=== PATIENT | female | born 1990 ===

== ENCOUNTER 2016-11-19 16:54 | Emergency (ER) | payer BC ==
[2016-11-19 17:01] VITALS: BP 137/73; PULSE 87; RESP 18; TEMP 98.3; O2SAT 98
--- NOTE | 2016-11-19 18:02 | ED PDOC ---
HPI: Female Pain Time Seen by Provider: 11/19/16 17:06 Chief Complaint (Nursing): Female Genitourinary Chief Complaint (Provider): UTI History Per: Patient Additional Complaint(s): Pt is a 26 yo female, , no PMH, presents to ED with complaints of clear discharge since earlier today. Pt was advised to go to the ED by her SCIENCE PROFESSOR. No abdominal pain. Pt denies any vaginal itching or burning. Pt wanted to make sure her water did not break. Dr. Tejeda (SCIENCE PROFESSOR) Past Medical History Reviewed: Nursing Documentation, Vital Signs Vital Signs: Last Vital Signs Temp 98.3 F 11/19/16 16:57 Pulse 87 11/19/16 16:57 Resp 18 11/19/16 16:57 BP 137/73 11/19/16 16:57 Pulse Ox 98 11/19/16 16:57 - Medical History PMH: No Chronic Diseases - Surgical History Surgical History: No Surg Hx - Family History Family History: States: No Known Family Hx - Living Arrangements Living Arrangements: With Family - Social History Current smoker - smoking cessation education provided: No Alcohol: None Drugs: Denies - Allergies Allergies/Adverse Reactions: Allergies Allergy/AdvReac Type Severity Reaction Status Date / Time No Known Allergies Allergy Verified 11/19/16 17:01 Review of Systems ROS Statement: Except As Marked, All Systems Reviewed And Found Negative Genitourinary Female: Positive for: Vaginal Discharge Physical Exam - Reviewed Nursing Documentation Reviewed: Yes Vital Signs Reviewed: Yes - Physical Exam Appears: Positive for: Well, Non-toxic, No Acute Distress Head Exam: Positive for: ATRAUMATIC, NORMAL INSPECTION, NORMOCEPHALIC Skin: Positive for: Normal Color, Warm, DRY Eye Exam: Positive for: EOMI, Normal appearance, PERRL ENT: Positive for: Normal ENT Inspection Neck: Positive for: Normal, Painless ROM Cardiovascular/Chest: Positive for: Regular Rate, Rhythm Respiratory: Positive for: CNT, Normal Breath Sounds Gastrointestinal/Abdominal: Positive for: Normal Exam, Bowel Sounds, Soft Back: Positive for: Normal Inspection Extremity: Positive for: Normal ROM Neurologic/Psych: Positive for: Alert, Oriented - ECG O2 Sat by Pulse Oximetry: 98 Medical Decision Making Medical Decision Making: Urine WNL US: 7 w 3 day SLIUP, (+) Heart Rate Pt educated on results and demonstrated full understanding. Disposition - Clinical Impression Clinical Impression: Vaginal discharge during - Patient ED Disposition Is Patient to be Admitted: No - Disposition Disposition: Routine/Home Disposition Time: 20:42 Condition: STABLE Instructions: (ED)
[2016-11-19 19:07] LABS: RBC URINE 1 /hpf (0-3); URINE BACTERIA RARE (<OCC); URINE BILIRUBIN NEGATIVE (NEGATIVE); URINE BLOOD NEGATIVE (NEGATIVE); URINE COLOR YELLOW (YELLOW); URINE GLUCOSE (UA) NEG (Normal); URINE KETONE TRACE mg/dL (NEGATIVE); URINE LEUKOCYTE ESTERASE NEG Leu/uL (Negative); URINE PROTEIN NEGATIVE (NEGATIVE); URINE UROBILINOGEN 0.2-1.0 mg/dL (0.2-1.0); WBC URINE 1 /hpf (0-5)
--- NOTE | 2016-11-19 20:26 | US ---
EXAM: US Uterus, Limited CLINICAL HISTORY: 26 years old, female; Signs and symptoms; Lmp or gestational age (in weeks): 07/31/16; Antepartum complications; Other: As per pt. Passing fluid; ; Additional info: Pt passing fluid TECHNIQUE: Real-time ultrasound of the maternal uterus (limited) with image documentation. EXAM DATE/TIME: 11/19/2016 6:02 PM COMPARISON: No relevant prior studies available. FINDINGS: Single fetus identified, breech position. Calculated sonographic gestational age is 15 weeks, 3 days. heart motion visualized, at 155 beats/min. Limited assessment of the anatomy on this exam. The stomach is seen. No obvious anomalies are detected. Anterior location of the placenta. No evidence of placental abruption. No evidence of placenta previa. TOVA was not measured. Amniotic fluid volume appears subjectively to be grossly normal in amount. Cervical length is 6.7 cm (normal greater than 3 cm), measured transabdominally. Ovaries could not be visualized. IMPRESSION: 15 week, 3 day intrauterine with heart motion. No acute abnormality identified on this limited exam. See above for remaining findings.
== END 2016-11-19 21:04 | disposition home or self-care (01) ==
LOC: H.ER 16:54
DX: O23.40 Unspecified infection of urinary tract in pregnancy, unspecified trimester (principal); Z3A.15 15 weeks gestation of pregnancy

== ENCOUNTER 2017-04-16 08:48 | Inpatient (IN) | payer BC ==
[2017-04-16 09:32] VITALS: BMI 40.2
[2017-04-16] MEDS ORDERED: Oxytocin 30 units/LR 500ML 30 U/500 ML BAG IV SCH (10:00)
[2017-04-16] MEDS: Lactated Ringer's 1,000 ML IV SCH (10:30)
[2017-04-16 10:53] LABS: BASO # 0.1 K/uL (0.0-0.2); BASO % 0.7 % (0.0-2.0); EOS # 0.1 K/uL (0.0-0.7); EOS % 0.9 % (0.0-4.0); HEMATOCRIT 39.8 % (34.0-47.0); LYMPH # 2.3 K/uL (1.0-4.3); LYMPH % 23.5 % (20.0-40.0); MEAN CELL VOLUME 73.9 fl (81.0-99.0); MEAN CORPUSCULAR HEMOGLOBIN 24.9 pg (27.0-31.0); MEAN CORPUSCULAR HGB CONC 33.6 g/dL (33.0-37.0); MEAN PLATELET VOLUME 10.6 fl (7.2-11.7); MONO # 0.7 K/uL (0.0-0.8); NEUT # 6.7 K/uL (1.8-7.0); NEUT % 67.9 % (50.0-75.0); NRBC % 0.1 % (0.0-0.0); WHITE BLOOD COUNT 9.9 K/uL (4.8-10.8)
--- NOTE | 2017-04-16 12:08 | OBHP ---
Datetime: 04/16/2017 09:45 IP Adm Impression: Term, intrauterine ; No Active Labor; Ruptured Membranes IP Admit Plan: Admit to unit Pelvic Type - PN: Adequate Extremities - PN: Normal Abdomen - PN: Normal Back - PN: Normal Breast - PN: Not Done Lungs - PN: Normal Heart - PN: Normal Thyroid - PN: Not Done Neurologic - PN: Normal HEENT - PN: Normal General - PN: Normal FHR - Baseline A Provider: 130 EGA AdmitDate IP: 37.0 Vital Signs Provider: Reviewed; Within Normal Limits IP Chief Complaint: Uterine contractions; Suspected ruptured membranes NICHD Variability Prov Fetus A: Moderate 6-25bpm NICHD Accel Fetus A IP Provider: 15X15 FHR Category Provider Fetus A: Category I NICHD Decel Fetus A IP Provider: None Dilatation, Provider: 0 Effacement, Provider: 0 Genitourinary Exam: Normal DTRs - PN: Not Done Datetime: 04/16/2017 09:30 Admit Comment, IP Provider: CC: ROM HPI: 26 yo at 37.0 wks GA via LMP; (First US: 10/27/2016) + FM, ROM -: CTX, VG Last US: 04/06/2017 last Visit: 04/14/2017 At 08:00 she shared a gush of clear/light pink fluid flowing from her vagina down her leg. Past OB: n/a Past gyne: denies STIs; pap 11/2016 neg pmhx: none past surg hx: none social: Negative: smoking/alcohol/drugs; last sexual encounter: months Meds: PNV allergies: NKDA VITALS: 132/72 83 PE: General: pleasant, in no acute distress HEENT: normocephalic, PERRLA; AAOx3 Heart: no murmurs, regular rate and rhythm, S1, S2 normal. Lungs: clear to auscultation bilaterally, no wheezing Abdomen: nontender, gravid CVA: negative Lower extremities: negative for pitting edema speculum: pooling of fluid in vaginal canal Bedside U/S: fetus in vertex Monitor: moderate variability; accel 15x15; no decel; FHR: 130 Assessment: 26 yo IUP at 37.0 wks GA via LMP ROM GBS: unknown Plan: Admit to Labor and Delivery, CBC/Type and Screen/RPR/HIV, Intravenous access, Monitori ng, Monitor Labor progress, Discussion about her condition including labor, augmentation with Pitocin , delivery, pain management, and care; case d/w Dr. Thomas SAWYER, PGY1 obh addendum: pt seen _ exmined by me. agree w/ above assessment and plan. Amniotic Fluid Color, Provider: Clear Membranes, Provider: Ruptured Comments, ACOG Physical Exam: bedside us vtx Pool Provider: Positive Nitrazine Provider: Positive Station, Provider: -3
[2017-04-16 12:41] LABS: ALB/GLOB RATIO 1.1 (1.0-2.1); ALKALINE PHOSPHATASE 217 U/L (38-126); ALT/SGPT 29 U/L (9-52); AST/SGOT 16 U/L (14-36); BILIRUBIN,TOTAL 0.5 mg/dl (0.2-1.3); BLOOD UREA NITROGEN 7 mg/dl (7-17); CALCIUM 9.3 mg/dL (8.4-10.2); CARBON DIOXIDE 21 mmol/L (22-30); CHLORIDE 108 mmol/L (98-107); GFR AFRICAN-AMERICAN > 60; GLUCOSE,RANDOM 87 mg/dL (65-105); POTASSIUM 3.9 MMOL/L (3.6-5.0); SODIUM 144 mmol/l (132-148); TOTAL PROTEIN 6.3 G/DL (6.3-8.2); URIC ACID 5.7 mg/Dl (2.2-7.5)
--- NOTE | 2017-04-16 15:29 | OBADHP ---
Datetime: 04/16/2017 09:45 Admit Comment, IP Provider: CC: ROM HPI: 26 yo at 37.0 wks GA via LMP; (First US: 10/27/2016) + FM, ROM -: CTX, VG Last US: 04/06/2017 last Visit: 04/14/2017 At 08:00 she shared a gush of clear/light pink fluid flowing from her vagina down her leg. Past OB: n/a Past gyne: denies STIs; pap 11/2016 neg pmhx: none past surg hx: none social: Negative: smoking/alcohol/drugs; last sexual encounter: months Meds: PNV allergies: NKDA VITALS: 132/72 83 PE: General: pleasant, in no acute distress HEENT: normocephalic, PERRLA; AAOx3 Heart: no murmurs, regular rate and rhythm, S1, S2 normal. Lungs: clear to auscultation bilaterally, no wheezing Abdomen: nontender, gravid CVA: negative Lower extremities: negative for pitting edema speculum: pooling of fluid in vaginal canal Bedside U/S: fetus in vertex GBS: unknown; ABO-Rh: A+; Ab: neg ; HIV: neg ; RPR: neg ; GC/C: neg ; Rubella: im ; HbsAg: neg; PP D: quant gold neg; TDap: ?? Monitor: moderate variability; accel 15x15; no decel; FHR: 130 Assessment: 26 yo IUP at 37.0 wks GA via LMP ROM GBS: unknown Plan: Admit to Labor and Delivery, CBC/Type and Screen/RPR/HIV, Intravenous access, Monitori ng, Monitor Labor progress, Discussion about her condition including labor, augmentation with Pitocin , delivery, pain management, and care; ase d/w Dr. Thomas SAWYER, PGY1 OBH Addendum: Patient seen and examined by me. Agree with above assessment and plan following the addition. She denies patient denies headache blurred vision blurred vision or spots in her vision right upper quadr ant pain nausea vomiting. O:. BP 1 3120s to 130s over 60s to 70s. Impression LFTs within normal limits, platelets normal Impression: Spontaneous rupture of membranes plan induction of labor with Cytotec order for Pitocin discontinue. Pelvic Type - PN: Adequate Extremities - PN: Normal Abdomen - PN: Normal Back - PN: Normal Breast - PN: Not Done Lungs - PN: Normal Heart - PN: Normal Thyroid - PN: Not Done Neurologic - PN: Normal HEENT - PN: Normal General - PN: Normal Vital Signs Provider: Reviewed; Within Normal Limits IP Chief Complaint: Uterine contractions; Suspected ruptured membranes NICHD Variability Prov Fetus A: Moderate 6-25bpm NICHD Accel Fetus A IP Provider: 15X15 FHR Category Provider Fetus A: Category I NICHD Decel Fetus A IP Provider: None Dilatation, Provider: 0 Effacement, Provider: 0 Genitourinary Exam: Normal DTRs - PN: Not Done EGA AdmitDate IP: 37.0 IP Adm Impression: Term, intrauterine ; No Active Labor; Ruptured Membranes IP Admit Plan: Admit to unit Datetime: 04/16/2017 09:30 FHR - Baseline A Provider: 120 Amniotic Fluid Color, Provider: Clear Membranes, Provider: Ruptured Comments, ACOG Physical Exam: bedside us vtx Pool Provider: Positive Nitrazine Provider: Positive Station, Provider: -3
[2017-04-17] MEDS: Lactated Ringer's 1,000 ML IV SCH ×4 (01:06→18:24)
[2017-04-17] MEDS: Nalbuphine 20 mg/ml Inj (1 ml) IVP PRN ×2 (01:11→04:45)
[2017-04-17] MEDS ORDERED: Nalbuphine 20 mg/ml Inj (1 ml) ONE (04:42)
[2017-04-17] MEDS ORDERED: Lactated Ringer's 1,000 ML IV SCH (06:10)
[2017-04-17] MEDS ORDERED: Bupivacaine HCl 0.25% PF (10 ml) Inj ONE (06:28)
[2017-04-17] MEDS ORDERED: Fentanyl/Bupivacaine HCl 250 ML EPI ONE (06:28)
[2017-04-17] MEDS ORDERED: Lidocaine 2% Inj (20ml) ONE (10:25)
[2017-04-17] MEDS ORDERED: Influenza Vaccine 18yr & older 0.5 ML/45 MCG SYR IM ONE ×2 (12:00→20:35)
[2017-04-17] MEDS ORDERED: Oxycodone/Acetaminophen 5/325 mg Tab PO PRN ×2 (19:46→20:33)
--- NOTE | 2017-04-17 20:12 | OBDS ---
MATERNAL INFORMATION Provider Comments: Pt pushed to deliver a viable female infant in direct OP position through clear f luid at 19:27. Apgars 9 and 9. Weight 2460gms, 5#6.8. Mouth and nares bulb-suctioned. Infant plac ed on mother's abdomen. Cord clamped and cut. Cord blood collected. Placenta delivered spontaneous ly intact w/ a 3vc at 19:33. Second degree vaginal tear repaired w/ running stitch of 3-0v.. 1st de gree tear repaired w/ figure-of- eight stitch of 3-0v. Rectum intact. Pt and baby tolerated procedu re well. EBL 100 mL LABOR SUMMARY EDC: 05/07/2017 00:00 No. Babies in Womb: 1 LABOR INFORMATION Cervical Ripening Agents: Cytotec @ (Annotations: 50mcg given po per MD's order. ) Group B Beta Strep: Done, Result Unknown MEMBRANES Membranes Rupture Method: Spontaneous Rupture of Membranes: 04/16/2017 08:00 Amniotic Fluid Color: Clear Amniotic Fluid Amount: Small Amniotic Fluid Odor: Normal PRESENTATION/POSITION BABY A Presentation: Cephalic
[2017-04-18 07:00] LABS: HEMATOCRIT 34.5 % (34.0-47.0); MEAN CELL VOLUME 74.7 fl (81.0-99.0); MEAN CORPUSCULAR HEMOGLOBIN 24.6 pg (27.0-31.0); RED CELL DISTRIBUTION WIDTH 18.4 % (11.5-14.5); WHITE BLOOD COUNT 29.8 K/uL (4.8-10.8)
[2017-04-18] MEDS ORDERED: Influenza Vaccine 18yr & older 0.5 ML/45 MCG SYR IM ONE (10:00)
--- NOTE | 2017-04-18 11:15 | OBPPN ---
Datetime: 04/18/2017 06:36 PP Pain Prov: Within normal limits PP Nausea Prov: Denies PP Flatus Prov: Yes PP BM Prov: No PP Breasts Prov: Not Done PP Heart Prov: Normal PP Lungs Prov: Normal PP Abdomen/Uterus Prov: Normal PP Lochia Prov: Normal PP Vulva/Perineum Prov: Not Done PP CVA Tenderness Prov: Normal PP Extremities Prov: Normal PP C/S Incision Prov: Not Applicable PP Progress Prov: Normal PP Impression Prov: Normal progression PP Plan Prov: Continue present management PP Progress Note Prov: S: 26 yo s/p NVD on 04/17/17 at 19:27. Pt. is seen and examined at [facility] this AM. No overnight events. Pt reports occasional abdominal pain, but well controlled with pain meds. Pt is ambulating without any difficulties. Attempting to breast feed baby. Tolerating PO diet. Lochia is similar to menses in volume. Voiding freely, No Bowel movement, but passing gas per rectum. Denies fever/chills, diarrhea, nausea/vomiting, chest pain, dyspnea, and dizziness. O: VS: stable GEN: NAD Cardio: S1S2, no M/G/R Resp: clear breath sounds b/l Abdomen: BS+, NT, Uterus is firm and at the level of the umbilicus. EXT: No edema, calves nontender NEURO/PSYCHI: AAOx3, no grossly focal deficit, preserved affect and mood. Assessment/Plan: 26 yo s/p NVD on 04/17/17 at 19:27. Pt remains afebrile, tolerating pain wi th medication, tolerating PO intake, doing well on PPD1. OOB with caution SCDs for DVT prophylaxis, pt ambulating Ibuprofen 600mg for pain. Colace 100mg PO BID/Senokot 17.2 mg qHS for constipation Encourage and ambulating F/u CBC post-delivery: pending Anticipated d/c to home tomorrow, 04/19/17. --- Salty Bhardwaj, PGY-1 OB H addendum: Patient seen and examined by me agree with above assessment and plan. IP PP Procedures: None Vital Signs Provider PP: Reviewed; Within Normal Limits
[2017-04-18 18:49] LABS: RBC URINE 2 /hpf (0-3); URINE BACTERIA OCC (<OCC); URINE BILIRUBIN NEGATIVE (NEGATIVE); URINE BLOOD NEGATIVE (NEGATIVE); URINE COLOR STRAW (YELLOW); URINE GLUCOSE (UA) NEG (Normal); URINE KETONE NEGATIVE (NEGATIVE); URINE LEUKOCYTE ESTERASE NEG Leu/uL (Negative); URINE PROTEIN NEGATIVE (NEGATIVE); URINE UROBILINOGEN 0.2-1.0 mg/dL (0.2-1.0); WBC URINE 3 /hpf (0-5)
--- NOTE | 2017-04-19 09:25 | OBDCSUM ---
Datetime: 04/19/2017 08:27 Discharged to, Provider: Home Follow up at, Provider: Casey Chang Instr Activity: Normal activity Disch Instr Diet: Regular Discharge Instructions, Provider: Routine instructions given Discharge Diagnosis, Provider: Term Delivered Discharge Time: 04/19/2017 10:00 Follow up in weeks, Provider: 4-6 weeks for visit Disch Referrals: None Contraception discussed, Prov: Yes Disch Activity Restrictions: No sexual activity; Nothing in vagina - [place], tampons, douche Discharge Comment, Provider: Discharge Summary DOA: 04/16/2017 EGA: 37.0 Diagnosis: NVD Term PRisk factors: none summary of : 26 yo F L_D summary DOL: 04/17/2017 at 19:27 NVD NB: F : 9/9 Weight: 2640g PP summary No serious complications during PP/Post-Op. Lochia= menses, mild pain, controlled with medications Rubella immune Blood type: A+ CBC pp: 11.4/34.5 Discharge Date: 04/19/2017 Time 10:00 AM Discharge Instructions: -encourage -percocet/Ibuprofen for pain PRN -Senokot 17.2 mg qHS for constipation -Ambulate as tolerated -f/u NB visit and PP visit --- Salty Bhardwaj, PGY1 [facility] Contraception after Delivery: Foam/Condoms
--- NOTE | 2017-04-19 09:25 | OBPPN ---
Datetime: 04/19/2017 08:23 PP Pain Prov: Within normal limits PP Nausea Prov: Denies PP Flatus Prov: Yes PP BM Prov: Yes PP Breasts Prov: Not Done PP Heart Prov: Normal PP Lungs Prov: Normal PP Abdomen/Uterus Prov: Normal PP Lochia Prov: Normal PP Vulva/Perineum Prov: Not Done PP CVA Tenderness Prov: Normal PP Extremities Prov: Normal PP C/S Incision Prov: Not Applicable PP Progress Prov: Normal PP Impression Prov: Normal progression PP Plan Prov: Discharge PP Progress Note Prov: S: 26 yo s/p NVD on 04/17/17 at 19:27. Pt. is seen and examined at [facility] this AM. No overnight events. Pt reports occasional abdominal pain, but well controlled with pain meds. Pt is ambulating without any difficulties. Attempting to breast feed/pump for baby. Tolerating PO diet. Lochia is similar to menses in volume. Voiding freely, Bowel movement and passing gas per re ctum. Denies fever/chills, diarrhea, nausea/vomiting, chest pain, dyspnea, and dizziness. O: VS: stable GEN: NAD Cardio: S1S2, no M/G/R Resp: clear breath sounds b/l Abdomen: BS+, NT, Uterus is firm and at the level of the umbilicus. EXT: No edema, calves nontender NEURO/PSYCHI: AAOx3, no grossly focal deficit, preserved affect and mood. Assessment/Plan: 26 yo s/p NVD on 04/17/17 at 19:27. Pt remains afebrile, tolerating pain wi th medication, tolerating PO intake, doing well on PPD2. OOB with caution pt ambulating Ibuprofen 600mg for pain. Senokot 17.2 mg qHS for constipation Encourage and ambulating F/u CBC post-delivery: 11.4/34.5 Anticipated d/c to home today, 04/19/17. --- Salty Bhardwaj, PGY-1 OB hospiutalist oncall. I saw and examined this patinet wi PGY1. Agree with note JORDAN VENCES PP Procedures: None Vital Signs Provider PP: Reviewed; Within Normal Limits
--- NOTE | 2017-04-20 09:17 | OBPPN ---
Datetime: 04/20/2017 09:10 PP Pain Prov: Within normal limits PP Nausea Prov: Denies PP Flatus Prov: Yes PP BM Prov: Yes PP Breasts Prov: Not Done PP Heart Prov: Normal PP Lungs Prov: Normal PP Abdomen/Uterus Prov: Normal PP Lochia Prov: Normal PP Vulva/Perineum Prov: Not Done PP CVA Tenderness Prov: Normal PP Extremities Prov: Normal PP C/S Incision Prov: Not Applicable PP Progress Prov: Normal PP Comments Phys Exam Prov: Pt is also attempting to pump breast milk. Rubio is in place pending urology consult. PP Impression Prov: Normal progression PP Plan Prov: Continue present management PP Progress Note Prov: S: 26 yo s/p NVD on 04/17/17 at 19:27. Pt. is seen and examined at [facility] this AM. No overnight events. Pt denies pain today. Pt is ambulating without any difficulties. Att empting to breast feed/pump for baby. Tolerating PO diet. Lochia is similar to menses in volume. Void in ml post void volume yesterday AM. Urology consulted. Rubio reinserted. Bowel movement and pa ssing gas per rectum. Denies fever/chills, diarrhea, nausea/vomiting, chest pain, dyspnea, and dizzin ess. O: VS: stable GEN: NAD Cardio: S1S2, no M/G/R Resp: clear breath sounds b/l Abdomen: BS+, NT, Uterus is firm and at the level of the umbilicus. EXT: No edema, calves nontender NEURO/PSYCHI: AAOx3, no grossly focal deficit, preserved affect and mood. Assessment/Plan: 26 yo s/p NVD on 04/17/17 at 19:27. Pt remains afebrile, tolerating pain wi th medication, tolerating PO intake, doing well on PPD3. OOB with caution pt ambulating Ibuprofen 600mg for pain. Senokot 17.2 mg qHS for constipation Encourage and ambulating F/u CBC post-delivery: 11.4/34.5 Anticipated d/c to home after urology consult. --- Salty Bhardwaj, PGY-1 IP PP Procedures: None Vital Signs Provider PP: Reviewed; Within Normal Limits Datetime: 04/19/2017 12:31 PP Impression Other Prov: urinary retention
--- NOTE | 2017-04-20 10:45 | OBPPN ---
Datetime: 04/20/2017 09:10 PP Progress Note Prov: S: 26 yo s/p NVD on 04/17/17 at 19:27. Pt. is seen and examined at [facility] this AM. No overnight events. Pt denies pain today. Pt is ambulating without any difficulties. Att empting to breast feed/pump for baby. Tolerating PO diet. Lochia is similar to menses in volume. Void in ml post void volume yesterday AM. Urology consulted. Rubio reinserted. Bowel movement and pa ssing gas per rectum. Denies fever/chills, diarrhea, nausea/vomiting, chest pain, dyspnea, and dizzin ess. O: VS: stable GEN: NAD Cardio: S1S2, no M/G/R Resp: clear breath sounds b/l Abdomen: BS+, NT, Uterus is firm and at the level of the umbilicus. EXT: No edema, calves nontender NEURO/PSYCHI: AAOx3, no grossly focal deficit, preserved affect and mood. Assessment/Plan: 26 yo s/p NVD on 04/17/17 at 19:27. Pt remains afebrile, tolerating pain wi th medication, tolerating PO intake, doing well on PPD3. OOB with caution pt ambulating Ibuprofen 600mg for pain. Senokot 17.2 mg qHS for constipation Encourage and ambulating F/u CBC post-delivery: 11.4/34.5 Anticipated d/c to home after urology consult. --- Salty Bhardwaj, PGY-1 The patient was seen with the resident I agree with note patient awaiting urology consult is for p davidable discharge his afternoon
[2017-04-20] MEDS: Bethanechol 50 MG TAB PO SCH ×3 (11:16→17:24)
[2017-04-20] MEDS ORDERED: Bethanechol 50 MG TAB PO SCH (13:00)
[2017-04-21 21:29] VITALS: BP 122/80; PULSE 72; RESP 20; TEMP 98.1; O2SAT 99
== END 2017-04-20 21:25 | disposition home or self-care (01) | DRG 775 ==
LOC: H.EROB2 08:48 → H.EROB 09:10 → H.L&D 09:56 → H.EROB2 09:59 → H.OB/GYN 04-17 20:50
PROVIDERS: ADMIT Obstetrics & Gynecology; ATTEND Obstetrics & Gynecology
PROC: 4A1HXCZ Monitoring of Products of Conception, Cardiac Rate, External Approach (ICD-10-PCS; 2017-04-16)
PROC: 10E0XZZ Delivery of Products of Conception, External Approach (ICD-10-PCS; principal; 2017-04-17)
PROC: 0HQ9XZZ Repair Perineum Skin, External Approach (ICD-10-PCS; 2017-04-17)
DX: O63.9 Long labor, unspecified (principal); K59.00 Constipation, unspecified; Z37.0 Single live birth; O70.1 Second degree perineal laceration during delivery; Z3A.37 37 weeks gestation of pregnancy